=== PATIENT | female | born 1945 | race Caucasian/White ===

== ENCOUNTER 2022-07-17 16:22 | Inpatient (IN) | payer OTHER ==
[~2022-07-17] VITALS: Ht 170.2 cm; Wt 78.9 kg
--- NOTE | 2022-07-17 16:25 | NUR ---
BIB FROM HOME WITH C/O SEVERE N/V FOR THE LAST 24 HRS. PT STATES SHE HAS VOMITTED AT LEAST 18 TIMES IN THE LAST 24 HRS. PT ALSO STATES SHE HAS CHILLS AND COUGH. HX - PARATHYROIDECTOMY, BILATERAL KNEE REPLACEMENT, PLATER FASCIITIS ALLERGIES: VICODIN, PENICILLIN, DORVM. PT IS AAX04, VSS, NAD, BREATHING IS EVEN AND UNLABORED ON RA. PT IS ON FOOD STOREROOM CLERK SHOWING NSR. SAFETY PRECAUTIONS AND COMFORT MEASURES ARE IN PLACE. PENDING MD [place] AND ORDERS.
--- NOTE | 2022-07-17 16:27 | NUR ---
CATHERINE Pruitt at bedside examining patient.
[2022-07-17 16:40] VITALS: BP_SYST 98
--- NOTE | 2022-07-17 17:12 | NUR ---
HOME MEDS MORNING MEDS 1) ASPIRIN 81 MG TAB 2) FUROSEMIDE 20 MG TAB 3) METFORMIN 1000 MG TAB 4) METOPROLOL TARTRATE 11 MG TAB 5) MIRALAX 17 G DISSOLVED IN LIQUD 6) TAL SOFTENER 1000 MG CAP 7) VITAMIN B12 1000 MCG TAB 8) VITAMIN D3 1000 IU GUMMIES MID-DAY MEDS 1) FUROSEMIDE 20 MG TAB 2) SARDIANCE 10 MG TAB EVENING MEDS 1) ATORVASTATIN 40 MG TAB 2) BUPROPION 300 MG TAB 3) METOFORMIN 1000 MG TAB 4) LISINOPRIL 10 MG TAB 5) MIRALAX 17 G DISOLVED
[2022-07-17] MEDS ORDERED: KETOROLAC TROMETHAMINE 30 MG VIAL IVP ONE (17:30)
[2022-07-17] MEDS ORDERED: NACL 0.9% 1,000 ML IV ONE (17:30)
[2022-07-17] MEDS ORDERED: ONDANSETRON HCL 4 MG/2 ML VIAL IVP ONE (17:30)
[2022-07-17 17:49] LABS: BASOPHILS % (AUTO) 0.7 % (0.0-2.0); EOSINOPHILS % (AUTO) 0.9 % (0.0-4.0); HEMATOCRIT 40.6 % (36-48); HEMOGLOBIN 13.6 g/dL (12.0-16.0); LYMPHOCYTES # (AUTO) 0.3 K/uL (1.0-5.5); LYMPHOCYTES % (AUTO) 7.4 % (20.5-51.5); MEAN CORPUSCULAR HEMOGLOBIN 30 pg (27-31); MEAN CORPUSCULAR HGB CONC 34 % (32-36); MEAN CORPUSCULAR VOLUME 90 fL (79.0-98.0); MONOCYTES # (AUTO) 0.6 K/uL (0.0-1.0); MONOCYTES % (AUTO) 14.5 % (1.7-9.3); NEUTROPHILS # (AUTO) 2.9 K/uL (1.8-7.7); NEUTROPHILS % (AUTO) 76.5 % (40.0-70.0); PLATELET COUNT (AUTO) 250 K/uL (130-430); RED BLOOD CELL COUNT(AUTO) 4.54 MIL/uL (4.2-6.2); RED CELL DISTRIBUTION WIDTH 14.5 % (9.0-15.0); WHITE BLOOD COUNT (AUTO) 3.8 K/uL (4.8-10.8)
[2022-07-17 18:01] LABS: ANION GAP 5 (5-15); CALCIUM 9.8 mg/dL (8.4-11.0); CHLORIDE 104 mmol/L (98-107); CREATININE 1.57 mg/dL (0.55-1.30); GLUCOSE 105 mg/dL (70-99); UREA NITROGEN, BLOOD 32 mg/dL (8-21)
[2022-07-17 18:05] LABS: BILIRUBIN,URINE 1+ (NEGATIVE); BLOOD, URINE NEGATIVE (NEGATIVE); CLARITY/URINE CLEAR (CLEAR); COLOR,URINE YELLOW (YELLOW); GLUCOSE,URINE 3+ (NEGATIVE); KETONES,URINE 1+ (NEGATIVE); LEUKOCYTE ESTERASE ,URINE NEGATIVE (NEGATIVE); NITRITE, URINE NEGATIVE (NEGATIVE); PH,URINE 7.5 (5.0-8.0); PROTEIN URINE TRACE (NEGATIVE); UROBILINOGEN,URINE 0.2 (0.2-1.0)
[2022-07-17 18:06] LABS: ALANINE AMINOTRANSFERASE 19 U/L (12-78); ALBUMIN 3.5 g/dL (3.4-4.8); ASPARTATE AMINOTRANSFERASE 18 U/L (10-37); LIPASE 61 U/L (73-393); TOTAL BILIRUBIN 0.9 mg/dL (0.0-1.0)
[2022-07-17 18:14] LABS: BACTERIA,URINE FEW /HPF (None Seen); RBC,URINE 0-3 /HPF (0-3); WBC,URINE 0-3 /HPF (0-3)
[2022-07-17 18:15] LABS: MUCUS,URINE None Seen /LPF (None Seen)
--- NOTE | 2022-07-17 18:28 | NUR ---
# 20 gauge angiocath placed to rt hand. Use of asceptic technique. Opsite placed over site. Blood return noted. Blood for lab drawn from site. Flushed with 10 cc of normal saline. No evidence of infiltration noted. Patient tolerated well.
--- NOTE | 2022-07-17 19:25 | NUR ---
REPORT RECIEVED FROM GEOVANNY FARMER
--- NOTE | 2022-07-17 20:16 | NUR ---
PT HAS NO NEW COMPLAINTS, VSS, NAD, EVEN UNLABORED RESPIRATIONS.
--- NOTE | 2022-07-17 20:20 | NUR ---
Admit bed requested Patient will be admitted to care of Dr. Sheth Admitted to MS unit. Diagnosis SMALL BOWEL OBSTRUCTION Inpatient (Yes or No) YES Observation (Yes or No) NO Orientation concerns or request close to nursing station (Yes or No) NO Covid Status PENDING On vent or bipap NO Isolation requirements NO Needs a sitter NO From Home (Yes or if No enter name of facility) YES Requires Dialysis (Yes or No) NO Med Rec Completed (Yes of No) PENDING
--- NOTE | 2022-07-17 20:22 | NUR ---
COVID SWAB COLLECTED AND GIVEN TO SCIENTIST ENGINEER.
[2022-07-17] MEDS ORDERED: BUPR300T55 PO (21:27)
[2022-07-17] MEDS ORDERED: METO25TA6 PO (21:27)
[2022-07-17] MEDS ORDERED: LISI10TA29 PO (21:27)
[2022-07-17] MEDS ORDERED: NEU300 PO (21:27)
[2022-07-17] MEDS ORDERED: EMPA10TA PO (21:27)
[2022-07-17] MEDS ORDERED: LIP40 PO (21:27)
[2022-07-17] MEDS ORDERED: PRAM0.75 PO (21:27)
[2022-07-17] MEDS ORDERED: FURO-150 PO (21:27)
[2022-07-17] MEDS ORDERED: METF-518 PO ×2 (21:27)
[2022-07-17] MEDS ORDERED: CHOL200041 (21:27)
[2022-07-17] MEDS ORDERED: CYAN100010 PO (21:27)
[2022-07-17] MEDS ORDERED: POLY17PO4 PO (21:27)
[2022-07-17] MEDS ORDERED: SENN-295 PO (21:27)
[2022-07-17] MEDS ORDERED: NALOXONE HCL 0.4 MG/ML AMP (NARCAN) IVP PRN ×2 (22:30)
[2022-07-17] MEDS ORDERED: GLUCOSE (DEXTROSE) ORAL GEL -Adults PO PRN (22:30)
[2022-07-17] MEDS ORDERED: D5W 1,000 ML IV PRN (22:30)
[2022-07-17] MEDS ORDERED: TEMAZEPAM 7.5 MG CAPSULE PO PRN (22:30)
[2022-07-17] MEDS ORDERED: traMADol HCL HCL 50 MG TABLET (ULTRAM) PO PRN (22:30)
[2022-07-17] MEDS ORDERED: DEXTROSE 50% JECT 50 ML DISP.SYRIN IVP PRN (22:30)
[2022-07-17 22:50] VITALS: BP_SYST 119
--- NOTE | 2022-07-17 22:50 | NUR ---
ADMISSION NOTE Received patient from ER via gurney. Patient admitted with diagnosis of small bowel obstruction. Patient is awake, alert, oriented X 4. IV site of rt wrist #20 patent,no s/s any infiltration after flused w/ ns. Patient oriented to hospital room, call light, toileting, pain management and safety-teach back done. Patient informed that I (Lennie) will be her nurse and that their room number is 117-A. Personal belongings checked and Belongings List documented. Discussed poc,all safety measures with pt and family at bedside, they verbalized understanding. Fall precaution in place. Bed alarmed, side rails x3,Call light within reach. Cont to monitor pt.
[2022-07-17 23:00] VITALS: BP_SYST 119
[2022-07-17] MEDS: MORPHINE 2 MG/ML INJ. SYRINGE IVP PRN (23:36)
[2022-07-17] MEDS: ONDANSETRON HCL 4 MG/2 ML VIAL IVP PRN (23:36)
[2022-07-18] MEDS: D5/0.45 NS 1,000 ML IV SCH ×2 (00:52→11:50)
--- NOTE | 2022-07-18 01:41 | NUR ---
Patient will be admitted to care of [facility]. Admitted to MEDSURG unit. Will go to room 105A. Belongings list completed. Complete and up to date summary report printed. [facility] given at bedside with opportunity for questions.
--- NOTE | 2022-07-18 02:20 | NUR ---
ROUNDS; -Pt is resting in bed comfortably. Pt denied any chest pain,pain,sob,N&V this time. Bed alarmed, side rails x3, call light w/in reach. cont to monitor pt.
[2022-07-18] MEDS ORDERED: INSULIN REGULAR, HUMAN 100 UNITS/ML, 3 ML VIAL (humuLIN R) SUBCUT PRN (03:00)
--- NOTE | 2022-07-18 06:05 | NUR ---
NOTES;BLOOD SUGAR=57, GAVE D50% IVP -Pt is alerted awakes and orientedx4. Gave D50% IVP.will recheck blood sugar w/in 15mins. NO s/s any hypoglycemia effect noted. Cont to monitor pt.
--- NOTE | 2022-07-18 06:47 | NUR ---
CLOSING NOTES; BLOOD CYSRG=363 -Pt is resting in bed comfortably. Pt denied any chest pain,pain,sob,N&V this time. Bed alarmed, side rails x3, call light w/in reach. Pt's condition stable. IVF infusing well,no s/s any infiltration noted. Will endorse to next nurse to cont care.
--- NOTE | 2022-07-18 07:09 | NUR ---
NOTES; CALLED AND TALKED TO PIPPA-DRAFTING DETAILER REGARDING Emily ORTIZ FOR NEW CONSULT [phone], LEFT MESSAGE AND WILL ENDORSE TO NEXT NURSE TO FOLLOW UP. Addendum: 07/18/22 at 0715 by [facility], RN RN ADDITIONAL NOTES; SPOKE WITH DR. GAITAN, HE ACKNOWLEDGES AND NO ORDER THIS TIME.
--- NOTE | 2022-07-18 07:30 | NUR ---
MORNING ROUNDS: PATIENT LYING ON THE BED ASLEEP. IV FLUIDS RUNNING AT RIGHT HAND INTACT. CALL LIGHT WITH IN REACH. BED LOCKED AT LOWEST POSITION.NOT IN ANY DISTRESS.
[2022-07-18 08:00] VITALS: BP_SYST 101
[2022-07-18] MEDS ORDERED: GASTROGRAFIN 120 ML ONE (08:02)
[2022-07-18] MEDS: ONDANSETRON HCL 4 MG/2 ML VIAL IVP PRN (09:20)
[2022-07-18 11:12] VITALS: BP_SYST 100
--- NOTE | 2022-07-18 11:30 | NUR ---
BLOOD SUGAR: BLOOD SUGAR TAKEN,NO INSULIN COVERAGE GIVEN PER SLIDING SCALE.
[2022-07-18] MEDS: MORPHINE 2 MG/ML INJ. SYRINGE IVP PRN ×2 (16:04→20:17)
--- NOTE | 2022-07-18 16:04 | NUR ---
IV PAIN MEDS: C/O ABDOMINAL PAIN AND DUE IV MORPHINE GIVEN PER REQUEST. NO PROBLEM.
--- NOTE | 2022-07-18 16:25 | NUR ---
SURGEON ROUNDS: PATIENT SEEN BY DR GAITAN AT THE BEDSIDE. SPOKE TO JAYY,PT'S SON AND UPDATES AND PLAN OF CARE RENDERED.
--- NOTE | 2022-07-18 17:19 | NUR ---
CARDIAC ROUNDS: ELIJAH BUCK SAW PATIENT AT THE BEDSIDE.
[2022-07-18 19:09] VITALS: BP_SYST 127
--- NOTE | 2022-07-18 19:11 | NUR ---
END OF SHIFT: PATIENT RESTING. IV FLUIDS RUNNING AT RIGHT HAND INTACT. CALL LIGHT WITH IN REACH. BED LOCKED AT LOWEST POSITION. NOT IN ANY DISTRESS.
[2022-07-18 20:17] VITALS: BP_SYST 116
--- NOTE | 2022-07-18 20:17 | NUR ---
PM ASSESSMENT; -Patient is awake, alert, oriented X 4. IV site of rt wrist #20 patent,no s/s any infiltration note. IVF infusing well. Patient oriented to hospital room, call light, toileting, pain management and safety-teach back done. Discussed poc,all safety measures, pt verbalized understanding. Fall precaution in place. Bed alarmed, side rails x3,Call light within reach. Cont to monitor pt.
--- NOTE | 2022-07-19 00:21 | NUR ---
ROUNDS; -Pt is asleep. NO s/s any chest pain,pain,sob,N&V noted. IVF infusing well, no s/s any infiltration noted. Bed alarmed, side rails x3, call light w/in reach. cont to monitor pt.
[2022-07-19 01:25] VITALS: BP_SYST 105
[2022-07-19] MEDS: D5/0.45 NS 1,000 ML IV SCH ×2 (01:45→16:22)
[2022-07-19] MEDS: ONDANSETRON HCL 4 MG/2 ML VIAL IVP PRN ×4 (02:57→22:31)
[2022-07-19] MEDS: MORPHINE 2 MG/ML INJ. SYRINGE IVP PRN ×2 (02:58→10:19)
--- NOTE | 2022-07-19 02:58 | NUR ---
PAIN MGMT; -Pt is c/o nausea & abd sharp pain 01/24 gave Morphine 2mg IVP and Zofran IVP for pain and N&V. GO=611/76,hr=84,q5jnr=93% r/a. IVF infusing well, no s/s any infiltration noted. Bed alarmed, side rails x3, call light w/in reach. cont to monitor pt.
[2022-07-19] MEDS: LEVOFLOXACIN 250 MG/D5W 50 ML IV SCH (03:01)
--- NOTE | 2022-07-19 06:26 | NUR ---
CLOSING NOTES; -Pt is resting in bed comfortably. No s/s any pain,sob,or acute distress noted. Bed alarmed, side rails x3, call light w/in reach. Pt's condition stable. IVF infusing well,no s/s any infiltration noted. Will endorse to next nurse to cont care.
[2022-07-19 07:28] LABS: BASOPHILS % (AUTO) 0.5 % (0.0-2.0); EOSINOPHILS # (AUTO) 0.1 K/uL (0.0-0.4); HEMATOCRIT 41.2 % (36-48); HEMOGLOBIN 13.6 g/dL (12.0-16.0); LYMPHOCYTES # (AUTO) 0.3 K/uL (1.0-5.5); LYMPHOCYTES % (AUTO) 9.2 % (20.5-51.5); MEAN CORPUSCULAR HEMOGLOBIN 30 pg (27-31); MEAN CORPUSCULAR HGB CONC 33 % (32-36); MEAN CORPUSCULAR VOLUME 90 fL (79.0-98.0); MONOCYTES # (AUTO) 0.5 K/uL (0.0-1.0); NEUTROPHILS # (AUTO) 2.3 K/uL (1.8-7.7); NEUTROPHILS % (AUTO) 73.3 % (40.0-70.0); PLATELET COUNT (AUTO) 225 K/uL (130-430); RED BLOOD CELL COUNT(AUTO) 4.58 MIL/uL (4.2-6.2); RED CELL DISTRIBUTION WIDTH 14.8 % (9.0-15.0)
--- NOTE | 2022-07-19 07:30 | NUR ---
MORNING ROUNDS: PATIENT LYING IN THE BED,RESTING. IV FLUIDS RUNNING AT RIGHT AC INTACT. ROOM AIR. CALL LIGHT WITH IN REACH. BED LOCKED AT LOWEST POSITION. NOT IN ANY DISTRESS.
[2022-07-19 07:44] LABS: WHITE BLOOD COUNT (AUTO) 3.2 K/uL (4.8-10.8)
[2022-07-19 07:55] LABS: ALANINE AMINOTRANSFERASE 16 U/L (12-78); ALBUMIN 2.9 g/dL (3.4-4.8); ANION GAP 7 (5-15); ASPARTATE AMINOTRANSFERASE 18 U/L (10-37); CALCIUM 9.2 mg/dL (8.4-11.0); CHLORIDE 108 mmol/L (98-107); CREATININE 1.17 mg/dL (0.55-1.30); GLUCOSE 101 mg/dL (70-99); TOTAL BILIRUBIN 0.6 mg/dL (0.0-1.0); UREA NITROGEN, BLOOD 24 mg/dL (8-21)
[2022-07-19 08:00] VITALS: BP_SYST 123
[2022-07-19 12:14] VITALS: BP_SYST 143
[2022-07-19] MEDS ORDERED: POTASSIUM CHLORIDE 40 MEQ in NS 250 ML IV ONE (14:30)
--- NOTE | 2022-07-19 15:30 | NUR ---
FELICIA RESULTS: SPOKE TO DR GAITAN AND RELAYED RESULTS OF FELICIA. NO NEW ORDERS MADE.HE WILL SEE PATIENT LATER. Addendum: 07/19/22 at 1957 by Lennie Louis RN ADDED NOTES: SURGEON AWARE PATIENT HAD VOMITED GREENISH IN LARGE AMOUNT.
[2022-07-19] MEDS ORDERED: METOPROLOL SUCCINATE 25 MG TAB.SR.24H (TOPROL XL) PO ONE (15:45)
[2022-07-19 16:18] VITALS: BP_SYST 155
--- NOTE | 2022-07-19 16:18 | NUR ---
TOPROL XL: TOPROL XL 12.5MG PO GIVEN FOR DW=609/82.
--- NOTE | 2022-07-19 16:26 | NUR ---
K-RIDER: K-RIDER GIVEN ORDERED FOR POTASSIUM LEVEL=3.4
--- NOTE | 2022-07-19 17:00 | NUR ---
BLOOD SUGAR: BLOOD HLMGA=400XJ/DL. NOTHING BY MOUTH.
--- NOTE | 2022-07-19 19:55 | NUR ---
RECEIVED PT IN BED, AOX4, DENIED ANY SOB, CP OR PAIN, D5 1/2NS AT 75CC TO RFA, NPO EXCEPT MEDS, BSC, BLE DRY AND SCAB, WILL CONTINUE WITH POC
[2022-07-19 20:00] VITALS: BP_SYST 130
[2022-07-20 01:34] VITALS: BP_SYST 149
[2022-07-20] MEDS: LEVOFLOXACIN 250 MG/D5W 50 ML IV SCH (04:05)
[2022-07-20] MEDS: D5/0.45 NS 1,000 ML IV SCH ×2 (04:06→17:10)
[2022-07-20 06:24] LABS: BASOPHILS % (AUTO) 0.6 % (0.0-2.0); HEMATOCRIT 40.8 % (36-48); HEMOGLOBIN 13.7 g/dL (12.0-16.0); LYMPHOCYTES # (AUTO) 0.3 K/uL (1.0-5.5); LYMPHOCYTES % (AUTO) 8.5 % (20.5-51.5); MEAN CORPUSCULAR HEMOGLOBIN 30 pg (27-31); MEAN CORPUSCULAR HGB CONC 34 % (32-36); MEAN CORPUSCULAR VOLUME 89 fL (79.0-98.0); MONOCYTES # (AUTO) 0.4 K/uL (0.0-1.0); MONOCYTES % (AUTO) 11.2 % (1.7-9.3); NEUTROPHILS # (AUTO) 3.2 K/uL (1.8-7.7); NEUTROPHILS % (AUTO) 78.7 % (40.0-70.0); PLATELET COUNT (AUTO) 242 K/uL (130-430); RED BLOOD CELL COUNT(AUTO) 4.57 MIL/uL (4.2-6.2); RED CELL DISTRIBUTION WIDTH 14.8 % (9.0-15.0)
--- NOTE | 2022-07-20 06:37 | NUR ---
RECEIVED PT IN BED, AOX4, DENIED ANY SOB, CP OR PAIN, LOOSE STOOL X2 DURING SHIFT, OOB TO BSC W/O ASSIST, D5 1/2NS AT 75CC TO RFA, NPO EXCEPT MEDS, BSC, BLE DRY AND SCAB, SAFETY PREC MAINTAINED, CALL LIGHT WITHIN REACH, WILL ENDORSE TO INCOMING RN
[2022-07-20 06:56] LABS: ALANINE AMINOTRANSFERASE 17 U/L (12-78); ALBUMIN 3.2 g/dL (3.4-4.8); ANION GAP 8 (5-15); ASPARTATE AMINOTRANSFERASE 11 U/L (10-37); CALCIUM 9.4 mg/dL (8.4-11.0); CHLORIDE 107 mmol/L (98-107); CREATININE 1.11 mg/dL (0.55-1.30); GLUCOSE 84 mg/dL (70-99); TOTAL BILIRUBIN 0.6 mg/dL (0.0-1.0); UREA NITROGEN, BLOOD 20 mg/dL (8-21)
[2022-07-20 09:46] VITALS: BP_SYST 138
[2022-07-20] MEDS: METOPROLOL SUCCINATE 25 MG TAB.SR.24H (TOPROL XL) PO SCH (10:20)
[2022-07-20 11:20] VITALS: BP_SYST 136
[2022-07-20] MEDS: ONDANSETRON HCL 4 MG/2 ML VIAL IVP PRN ×2 (12:29→23:06)
[2022-07-20] MEDS ORDERED: BUPIVACAINE /EPINEPHRINE/PF 0.5% 30 ML VIAL INJ ONE (14:20)
[2022-07-20] MEDS ORDERED: DEXAMETHASONE SOD PHOSPHATE 4 MG/ML VIAL ONE (14:20)
[2022-07-20] MEDS ORDERED: PROPOFOL 200MG/ 20ML VIAL (DIPRIVAN) IV ONE (14:20)
[2022-07-20] MEDS ORDERED: GLYCOPYRROLATE 0.2 MG/ML VIAL ONE (14:20)
[2022-07-20] MEDS ORDERED: SUCCINYLCHOLINE CHLORIDE 20 MG/ML(QUELICIN) ONE (14:20)
[2022-07-20] MEDS ORDERED: SEVOFLURANE 15 MIN GAS INH ONE (14:20)
[2022-07-20] MEDS ORDERED: ePHEDrine sulfate 50 MG/ML VIAL ONE (14:20)
[2022-07-20] MEDS ORDERED: HYDROmorphone 2 MG/ML VIAL ONE (14:20)
[2022-07-20] MEDS ORDERED: MIDAZOLAM HCL 2 MG/2 ML VIAL (VERSED) ONE (14:20)
[2022-07-20] MEDS ORDERED: ROCURONIUM BROMIDE 10 MG/ML (ZEMURON) ONE (14:20)
[2022-07-20] MEDS ORDERED: NS 100 ML BAG ONE (14:20)
[2022-07-20] MEDS ORDERED: NEOSTIGMINE METHYLSULFATE 1 MG/ML, 10 ML VIAL ONE (14:20)
[2022-07-20] MEDS ORDERED: LR 1,000 ML IV.SOLN IV ONE (14:20)
[2022-07-20] MEDS ORDERED: BUPIVACAINE LIPOSOME/PF 266 MG/20 ML VIAL INFIL ONE (17:38)
[2022-07-20] MEDS ORDERED: ONDANSETRON HCL 4 MG/2 ML VIAL IVP PRN (18:00)
[2022-07-20] MEDS ORDERED: HYDROmorphone 1 MG/ML INJ. CARTRIDGE IVP PRN ×2 (18:00)
[2022-07-20] MEDS ORDERED: NALOXONE HCL 0.4 MG/ML AMP (NARCAN) IVP PRN ×2 (18:00)
[2022-07-20 18:04] VITALS: BP_SYST 136
--- NOTE | 2022-07-20 19:30 | NUR ---
OPENING NOTE Received pt from PACU s/p robotic assisted laparoscopic lysis of adhesions, release of SBO and removal of old mesh. Abd incision dressings CDI. Pt brought on 6L simple mask, O2 96%. NGT intact connected to low intermittent suction. Soares catheter intact and draining by gravity. Fall and safety precautions in place with bed in lowest position, bed alarm on, and call light within reach
[2022-07-20 20:00] VITALS: BP_SYST 112
[2022-07-20] MEDS: MORPHINE 2 MG/ML INJ. SYRINGE IVP PRN (23:00)
--- NOTE | 2022-07-21 00:15 | NUR ---
ROUNDS Pt lying in bed, eyes closed. Breathing even and unlabored. Fall and safety checks in place
[2022-07-21 00:34] VITALS: BP_SYST 128
[2022-07-21] MEDS: LEVOFLOXACIN 250 MG/D5W 50 ML IV SCH (04:09)
[2022-07-21] MEDS: D5/0.45 NS 1,000 ML IV SCH ×2 (06:24→22:05)
--- NOTE | 2022-07-21 07:26 | NUR ---
CLOSING NOTE Pt awake lying in bed. No s/s of respiratory distress. Breathing even and unlabored on 4L nasal cannula. NGT intact connected to low intermittent suction. Soares catheter removed per MD order. pt tolerated well. All needs met throughout shift. Fall and safety precautions in place with bed in lowest position, bed alarm on, and call light within reach
[2022-07-21 07:35] LABS: ALANINE AMINOTRANSFERASE 16 U/L (12-78); ALBUMIN 2.6 g/dL (3.4-4.8); ANION GAP 10 (5-15); ASPARTATE AMINOTRANSFERASE 13 U/L (10-37); CALCIUM 8.5 mg/dL (8.4-11.0); CHLORIDE 107 mmol/L (98-107); CREATININE 0.89 mg/dL (0.55-1.30); GLUCOSE 103 mg/dL (70-99); TOTAL BILIRUBIN 0.4 mg/dL (0.0-1.0); UREA NITROGEN, BLOOD 17 mg/dL (8-21)
[2022-07-21 08:09] LABS: BASOPHILS % (AUTO) 0.1 % (0.0-2.0); HEMATOCRIT 37.7 % (36-48); HEMOGLOBIN 12.6 g/dL (12.0-16.0); LYMPHOCYTES # (AUTO) 0.4 K/uL (1.0-5.5); LYMPHOCYTES % (AUTO) 6.1 % (20.5-51.5); MEAN CORPUSCULAR HEMOGLOBIN 30 pg (27-31); MEAN CORPUSCULAR HGB CONC 33 % (32-36); MEAN CORPUSCULAR VOLUME 90 fL (79.0-98.0); MONOCYTES # (AUTO) 0.6 K/uL (0.0-1.0); MONOCYTES % (AUTO) 10.2 % (1.7-9.3); NEUTROPHILS # (AUTO) 4.9 K/uL (1.8-7.7); NEUTROPHILS % (AUTO) 83.6 % (40.0-70.0); PLATELET COUNT (AUTO) 208 K/uL (130-430); RED CELL DISTRIBUTION WIDTH 14.6 % (9.0-15.0); WHITE BLOOD COUNT (AUTO) 5.8 K/uL (4.8-10.8)
[2022-07-21 08:17] VITALS: BP_SYST 138
[2022-07-21] MEDS: METOPROLOL SUCCINATE 25 MG TAB.SR.24H (TOPROL XL) PO SCH (09:40)
[2022-07-21] MEDS: MORPHINE 2 MG/ML INJ. SYRINGE IVP PRN (10:44)
[2022-07-21 11:25] VITALS: BP_SYST 142
[2022-07-21] MEDS ORDERED: *LOVENOX 1MG/KG Q12H/PHARMACY XX ONE (11:45)
[2022-07-21] MEDS ORDERED: ENOXAPARIN SODIUM 80 MG/0.8 ML SYRINGE SUBCUT ONE (12:45)
[2022-07-21 15:25] VITALS: BP_SYST 143
[2022-07-21 20:27] VITALS: BP_SYST 129
[2022-07-21] MEDS: ENOXAPARIN SODIUM 80 MG/0.8 ML SYRINGE SUBCUT SCH (21:41)
[2022-07-22] VITALS: BP_SYST 124
[2022-07-22] MEDS: LEVOFLOXACIN 250 MG/D5W 50 ML IV SCH (05:33)
[2022-07-22 08:06] VITALS: BP_SYST 115
--- NOTE | 2022-07-22 08:06 | NUR ---
INITIAL ROUNDS Received pt AAOx4, no s/s resp distress-noted shallow breathing-pt encouraged to use her Incentive Spirometer, pt educated and teach back done. Pt c/o abd pain 09/23-will check on due pain medications. IVF infusing well to RAC at ordered rate with no s/s infiltration to site. Plan of care for the day reviewed with pt-pt verbalized her understanding. Pain management, skin and safety discussed-teach back done. Side rails up x3, pt declines bed alarm due to pt gets up by herself to use the bedside commode. Pt encouraged to call nursing for assist if she feels weak or light-headed for safety-pt stated she would. Call light within reach.
[2022-07-22] MEDS: MORPHINE 2 MG/ML INJ. SYRINGE IVP PRN ×3 (08:54→23:19)
[2022-07-22] MEDS: LISINOPRIL 10 MG TABLET (PRINIVIL) PO SCH (08:55)
[2022-07-22] MEDS: METOPROLOL SUCCINATE 25 MG TAB.SR.24H (TOPROL XL) PO SCH (08:55)
[2022-07-22] MEDS: ENOXAPARIN SODIUM 80 MG/0.8 ML SYRINGE SUBCUT SCH ×2 (08:56→20:57)
[2022-07-22] MEDS: D5/0.45 NS 1,000 ML IV SCH (09:10)
[2022-07-22 12:01] VITALS: BP_SYST 105
[2022-07-22 16:28] VITALS: BP_SYST 126
[2022-07-22] MEDS: ONDANSETRON HCL 4 MG/2 ML VIAL IVP PRN (17:44)
--- NOTE | 2022-07-22 19:04 | NUR ---
CLOSING NOTE Pt sitting up in bed with no further c/o nausea, no further c/o pain or discomfort. IVF infusing well at ordered rate with no s/s infiltration to site. All precautions remain in place. Needs met. Call light within reach.
[2022-07-22 20:00] VITALS: BP_SYST 115
--- NOTE | 2022-07-22 20:00 | NUR ---
Opening note-pt awake and oriented. laparoscopic abdominal incisions intact and dry. Pt tolerated clear liquid diet. V/s stable afebrile.
--- NOTE | 2022-07-22 23:19 | NUR ---
Morphine 1 mg ivp was given- not 2 mg.
[2022-07-23 00:04] VITALS: BP_SYST 138
[2022-07-23] MEDS: ONDANSETRON HCL 4 MG/2 ML VIAL IVP PRN ×2 (00:06→05:53)
[2022-07-23] MEDS: D5/0.45 NS 1,000 ML IV SCH ×2 (01:21→11:50)
--- NOTE | 2022-07-23 03:33 | NUR ---
Pt remains stable. v/s stable afebrile. D51/2NS @ 75 ml/hr. Given Levaquin ivpb daily. BS- WNL. Given Lovenox sub-q BID. No BM. Used BSC. C/o abdominal pain and Nausea. Medicated Morphine 1 mg ivp with Zofran 4mg ivp.
[2022-07-23] MEDS: LEVOFLOXACIN 250 MG/D5W 50 ML IV SCH (04:43)
[2022-07-23] MEDS: MORPHINE 2 MG/ML INJ. SYRINGE IVP PRN ×2 (05:29→10:32)
[2022-07-23 08:21] VITALS: BP_SYST 115
[2022-07-23] MEDS: ENOXAPARIN SODIUM 80 MG/0.8 ML SYRINGE SUBCUT SCH (09:06)
[2022-07-23] MEDS: METOPROLOL SUCCINATE 25 MG TAB.SR.24H (TOPROL XL) PO SCH (09:07)
[2022-07-23] MEDS: LISINOPRIL 10 MG TABLET (PRINIVIL) PO SCH (09:08)
[2022-07-23 11:26] LABS: ALANINE AMINOTRANSFERASE 17 U/L (12-78); ALBUMIN 2.6 g/dL (3.4-4.8); ANION GAP 1 (5-15); ASPARTATE AMINOTRANSFERASE 13 U/L (10-37); CALCIUM 8.7 mg/dL (8.4-11.0); CHLORIDE 106 mmol/L (98-107); CREATININE 0.99 mg/dL (0.55-1.30); GLUCOSE 94 mg/dL (70-99); TOTAL BILIRUBIN 0.5 mg/dL (0.0-1.0); UREA NITROGEN, BLOOD 12 mg/dL (8-21)
[2022-07-23 14:35] VITALS: BP_SYST 141
--- NOTE | 2022-07-23 15:23 | NUR ---
PHYSICAL THERAPY CO-SIGN The Physical Therapy Progress Notes documented by Ear Muff Assembler have been reviewed. Reviewed/Co-Signed by: Clarence Bradford Documentation Done by:NAHEED LANDA Addendum: 07/23/22 at 1523 by Clarence Bradford PT Amended: Links added.
[2022-07-23 18:36] VITALS: BP_SYST 153
--- NOTE | 2022-07-23 19:15 | NUR ---
D/C Patient home, picked up by son via personal vehicle. Patient given medication reconciliation form and D/C instructions. Exit Care provided. Patient verbalized understanding. MD discussed with patient the results and treatment provided. Ambulatory with steady gait for discharge to home. Patient in stable condition, ID band removed. IV catheter removed, intact and dressing applied, no active bleeding. Rx of given. Patient educated on pain management. All belongings sent with patient. VSS.
== END 2022-07-23 19:08 | disposition home health service (06) | DRG 329 ==
LOC: SED 16:22 → SMU 20:16
PROVIDERS: ADMIT Internal Medicine; ATTEND Internal Medicine
PROC: 0DB80ZZ Excision of Small Intestine, Open Approach (ICD-10-PCS; 2022-07-20)
PROC: 0DNU4ZZ Release Omentum, Percutaneous Endoscopic Approach (ICD-10-PCS; 2022-07-20)
PROC: 0WPF4JZ Removal of Synthetic Substitute from Abdominal Wall, Percutaneous Endoscopic Approach (ICD-10-PCS; 2022-07-20)
PROC: 0WUF4JZ Supplement Abdominal Wall with Synthetic Substitute, Percutaneous Endoscopic Approach (ICD-10-PCS; 2022-07-20)
PROC: 8E0W4CZ Robotic Assisted Procedure of Trunk Region, Percutaneous Endoscopic Approach (ICD-10-PCS; 2022-07-20)
PROC: 0DJD0ZZ Inspection of Lower Intestinal Tract, Open Approach (ICD-10-PCS; principal; 2022-07-20 14:30)
DX: K43.0 Incisional hernia with obstruction, without gangrene (principal); N17.0 Acute kidney failure with tubular necrosis; K56.7 Ileus, unspecified; N17.9 Acute kidney failure, unspecified; I10 Essential (primary) hypertension; Z20.822 Contact with and (suspected) exposure to COVID-19; K66.0 Peritoneal adhesions (postprocedural) (postinfection); E78.5 Hyperlipidemia, unspecified; E11.9 Type 2 diabetes mellitus without complications; K52.9 Noninfective gastroenteritis and colitis, unspecified; Z88.0 Allergy status to penicillin; Z90.49 Acquired absence of other specified parts of digestive tract; Z88.5 Allergy status to narcotic agent; Z88.8 Allergy status to other drugs, medicaments and biological substances; Z90.710 Acquired absence of both cervix and uterus
CPT/HCPCS: 36415; 71045; 74018; 74021; 74250-TC; 76376; 80053; 81000; 83605; 83690; 83735; 83880; 84484; 85025; 86803; 87040; 88302; 88304; 88305; 93005; 93306; 97116-GP; 97163-GP; 97530-GP; 99285; C1727; C9290; J0330; J1100; J1170; J1650; J1885; J1956; J2270; J2405; J2704; J2710; J3465; J3480; J3490; J7050; J7120; Q9963

== ENCOUNTER 2022-12-11 18:56 | Emergency (ER) | payer OTHER ==
[~2022-12-11] VITALS: Ht 175.3 cm; Wt 77.1 kg
[2022-12-11 18:56] VITALS: BP_SYST 111; PULSE 73; RESP 19; TEMP 98; O2SAT 97
[~2022-12-11 18:56] MED LIST: BUPR300T55 PO; CHOL200041; CYAN100010 PO; EMPA10TA PO; FURO-150 PO; LIP40 PO; LISI10TA29 PO; METF-518 PO; METO25TA6 PO; NEU300 PO; POLY17PO4 PO; PRAM0.75 PO; SENN-295 PO
--- NOTE | 2022-12-11 18:56 | NUR ---
BROUGHT BACK TO BED #6 VIA WHEELCHAIR AND TRIAGED. REPORT GIVEN TO TRAIN DIRECTOR CHARGE NURSE
--- NOTE | 2022-12-11 19:00 | NUR ---
pt bib son c/o left laceration 6 cm. pt alexandr any head taruma or loc at the time of fall. pt has a hx of dm,htn, lymphoma, and high cholestrol. pt is gcs 15 eyes open spontaneously. pt is alert and oriented to person, place, time, and situation. pt obeys commands. pt denies visual or auditory issues. pt denies sob or chest pain. pt denies n/v/d. pt denies any abdominal pain at this time. pt laceration is not currently bleeding. pt is not on blood thinners. pt is in room 6 on the monitor with son at bedside. plan of care continues.
[2022-12-11] MEDS ORDERED: BACITRACIN 1 GM OINT TP ONE ×2 (19:15→21:46)
[2022-12-11] MEDS ORDERED: ACETAMINOPHEN 325 MG TABLET PO ONE (19:15)
[2022-12-11] MEDS ORDERED: DIPHTH,PERTUSS(ACELL),TET VAC 0.5 ML VIAL (Tdap) I.M. ONE (19:15)
[2022-12-11] MEDS ORDERED: LIDOCAINE 1% 10 MG/ML, 20 ML MDV INJ ONE (19:15)
[2022-12-11] MEDS ORDERED: ONDANSETRON 4 MG ODT TAB PO ONE (19:15)
[2022-12-11] MEDS ORDERED: ACETAMINOPHEN 325 MG TABLET ONE (19:35)
--- NOTE | 2022-12-11 19:36 | NUR ---
pt taken to ct by
--- NOTE | 2022-12-11 19:47 | NUR ---
pt given tylenol 650 mg for pain and zofran for nausea.
--- NOTE | 2022-12-11 20:45 | NUR ---
pt has not recived tetanus shot in last 5 years so pt gave consnet to recieve vaccine. vaccine given to pt in the right deltoid.
--- NOTE | 2022-12-11 21:31 | NUR ---
Note paulette in EDM - 12/11/22 at 2132 by [email or web address] Patient has a 6 cm laceration to . Dr. hernández applied sutures using sterile technique. Edges well approximated. Site cleansed with sterile water. Dressing of applied to site. No bleeding noted. Pt tolerated well.
--- NOTE | 2022-12-11 21:32 | NUR ---
Patient has a 6 cm laceration to left occiput. Dr. vincent applied sutures using sterile technique. Edges well approximated. Site cleansed with steril water and idoine. Dressing of non-adhesive and bacetracine applied to site. No bleeding noted. Pt tolerated well.
--- NOTE | 2022-12-11 21:55 | NUR ---
Patient given written and verbal discharge instructions and verbalizes understanding. ER MD discussed with patient the results and treatment provided. Patient in stable condition. ID arm band removed. IV catheter removed intact and dressing applied, no active bleeding. Patient educated on LACERATION management and to follow up with PMD. Pain Scale 2 OUT OF 10 . Opportunity for questions provided and answered. Medication side effect fact sheet provided.
[2022-12-11 22:01] VITALS: BP_SYST 113; PULSE 66; RESP 12; TEMP 98.1; O2SAT 96
== END 2022-12-11 21:55 | disposition home or self-care (01) ==
LOC: SED 18:56
DX: S01.112A Laceration without foreign body of left eyelid and periocular area, initial encounter (principal); M50.30 Other cervical disc degeneration, unspecified cervical region; E11.9 Type 2 diabetes mellitus without complications; I10 Essential (primary) hypertension; Z88.0 Allergy status to penicillin; Z88.5 Allergy status to narcotic agent; Z88.6 Allergy status to analgesic agent; Z79.899 Other long term (current) drug therapy; W18.40XA Slipping, tripping and stumbling without falling, unspecified, initial encounter; Y93.89 Activity, other specified; Y92.89 Other specified places as the place of occurrence of the external cause; Y99.8 Other external cause status
CPT/HCPCS: 99285; 70450; 70486; 72125; 90715; 90471; 12013; 76376; Q0162; J2001

== ENCOUNTER 2022-12-18 16:15 | Emergency (ER) | payer OTHER ==
[~2022-12-18] VITALS: Ht 175.3 cm; Wt 77.1 kg
[2022-12-18 16:28] VITALS: BP_SYST 131; PULSE 89; RESP 18; TEMP 98.2; O2SAT 100
--- NOTE | 2022-12-18 16:30 | NUR ---
PATIENT BIB FOR SUTURE REMOVAL.
--- NOTE | 2022-12-18 16:35 | NUR ---
Patient to ER chair 1 for evaluation.
--- NOTE | 2022-12-18 16:40 | NUR ---
ER at bedside examining patient.
[2022-12-18 17:17] VITALS: BP_SYST 131; PULSE 89; RESP 18; TEMP 98.2; O2SAT 100
--- NOTE | 2022-12-18 17:17 | NUR ---
Patient given written and verbal discharge instructions and verbalizes understanding. ER MD discussed with patient the results and treatment provided. Patient in stable condition. ID arm band removed. Patient educated on pain management and to follow up with PMD. Pain Scale 0/10 Opportunity for questions provided and answered.
== END 2022-12-18 17:17 | disposition home or self-care (01) ==
LOC: SED 16:15
DX: Z48.02 Encounter for removal of sutures (principal); E11.9 Type 2 diabetes mellitus without complications; I10 Essential (primary) hypertension; Z88.0 Allergy status to penicillin; Z88.5 Allergy status to narcotic agent; Z88.6 Allergy status to analgesic agent; Z79.899 Other long term (current) drug therapy
CPT/HCPCS: 99281

== ENCOUNTER 2022-12-20 15:19 | Emergency (ER) | payer OTHER ==
[~2022-12-20] VITALS: Ht 175.3 cm; Wt 77.1 kg
[2022-12-20 16:01] VITALS: BP_SYST 129; PULSE 71; RESP 18; TEMP 98.2; O2SAT 96
[2022-12-20 17:12] LABS: BASOPHILS # (AUTO) 0.1 K/uL (0.0-0.2); BASOPHILS % (AUTO) 1.4 % (0.0-2.0); EOSINOPHILS # (AUTO) 0.1 K/uL (0.0-0.4); HEMATOCRIT 38.6 % (36-48); HEMOGLOBIN 12.6 g/dL (12.0-16.0); LYMPHOCYTES # (AUTO) 0.6 K/uL (1.0-5.5); LYMPHOCYTES % (AUTO) 14.4 % (20.5-51.5); MEAN CORPUSCULAR HEMOGLOBIN 29 pg (27-31); MEAN CORPUSCULAR HGB CONC 33 % (32-36); MEAN CORPUSCULAR VOLUME 90 fL (79.0-98.0); MONOCYTES # (AUTO) 0.4 K/uL (0.0-1.0); NEUTROPHILS # (AUTO) 3.2 K/uL (1.8-7.7); NEUTROPHILS % (AUTO) 73.2 % (40.0-70.0); PLATELET COUNT (AUTO) 275 K/uL (130-430); RED BLOOD CELL COUNT(AUTO) 4.29 MIL/uL (4.2-6.2); RED CELL DISTRIBUTION WIDTH 14.3 % (9.0-15.0); WHITE BLOOD COUNT (AUTO) 4.4 K/uL (4.8-10.8)
[2022-12-20 17:22] LABS: PROTHROMBIN TIME 10.7 SECS (9.5-12.5)
[2022-12-20 17:24] LABS: ALANINE AMINOTRANSFERASE 16 U/L (12-78); ALBUMIN 3.4 g/dL (3.4-4.8); ANION GAP 4 (5-15); ASPARTATE AMINOTRANSFERASE 20 U/L (10-37); CALCIUM 8.9 mg/dL (8.4-11.0); CARBON DIOXIDE 30 mmol/L (23-29); CHLORIDE 108 mmol/L (98-107); CREATININE 0.86 mg/dL (0.55-1.30); GLUCOSE 82 mg/dL (74-106); POTASSIUM 4.2 mmol/L (3.5-5.1); SODIUM SERUM 142 mmol/L (136-145); TOTAL BILIRUBIN 0.4 mg/dL (0.0-1.0); TOTAL PROTEIN, SERUM 6.3 g/dL (6.4-8.3); UREA NITROGEN, BLOOD 13 mg/dL (8-21)
[2022-12-20 17:26] LABS: CREATINE KINASE, TOTAL 96 U/L (26-192)
[2022-12-20] MEDS ORDERED: CLIN-22 PO (17:58)
[2022-12-20 19:45] VITALS: BP_SYST 127; PULSE 69; RESP 18; TEMP 98.2; O2SAT 96
== END 2022-12-20 19:45 | disposition home or self-care (01) ==
LOC: SED 15:19
DX: L03.116 Cellulitis of left lower limb (principal); L03.115 Cellulitis of right lower limb; R60.0 Localized edema; E11.9 Type 2 diabetes mellitus without complications; I10 Essential (primary) hypertension; Z88.0 Allergy status to penicillin; Z88.5 Allergy status to narcotic agent; Z88.6 Allergy status to analgesic agent; Z79.899 Other long term (current) drug therapy
CPT/HCPCS: 36415; 71045; 80053; 82550; 83880; 84484; 85025; 85610-TC; 85730-TC; 93005; 99285